=== PATIENT | female | born 1985 | race Caucasian/White ===

== ENCOUNTER → 2018-02-08 | Day surgery (SDC) | payer OTHER ==
[~2018-02-08] MED LIST: FENTANYL CITRATE/PF 100MCG/2 ML INJ ONE; FLEXERIL10 MG PO; LEVOTHYROXINE50 MCG PO; LIDODERM700 MG; METFORMIN HCL1000 MG PO; PHENERGAN SUPP25 MG; PROPOFOL IV EMULSION 10 MG/ML 50 ML VIAL ONE; VENLAFAXINE HCL75 MG PO; VICODIN 5-5001 EACH PO; WELLBUTRIN PO; WELLBUTRIN XL150 MG PO
--- NOTE | 2018-02-08 09:11 | Operative Report ---
DATE OF PROCEDURE: February 08, 2018 PROCEDURE: Esophagogastroduodenoscopy. PREOPERATIVE DIAGNOSIS: The patient has abdominal pain, bloating, peptic ulcer disease, gastroesophagitis, and upper gastrointestinal neoplasm. PROCEDURE: After informed written consent, premedication with monitored anesthesia care. The standard video Olympus gastroscope was introduced into the mouth, esophagus, stomach and into the 2nd portion of the duodenum. The 1st and 2nd portion of the duodenum appeared to be normal. Biopsies were done to rule out any possibility of malabsorption of celiac sprue. The antrum and body showed evidence of gastritis with some scattered erosions and biopsies were done. Fundus of the stomach appeared to be normal. Retroflexion was unremarkable. The GE junction showed evidence of mild reflux and biopsies were done to rule out any possibility of short segment Castañeda's. The rest of the esophagus was normal. IMPRESSION 1. Mild esophagitis. 2. Significant gastritis. RECOMMENDATIONS: Avoid aspirin, NSAIDs. Will put the patient on lansoprazole 30 mg once a day. Patient advised to follow up in the office in 3 weeks. If symptoms persist, further evaluation may be recommended. Further recommendations will be based on the patient's clinical course. Job#: [id number]
== END | disposition home or self-care (01) ==
LOC: OR 05:33
PROVIDERS: ATTEND Internal Medicine Gastroenterology
DX: D49.0 Neoplasm of unspecified behavior of digestive system (principal); K29.70 Gastritis, unspecified, without bleeding; K27.9 Peptic ulcer, site unspecified, unspecified as acute or chronic, without hemorrhage or perforation; K20.9 Esophagitis, unspecified; E66.01 Morbid (severe) obesity due to excess calories; E03.9 Hypothyroidism, unspecified; E28.2 Polycystic ovarian syndrome; F32.9 Major depressive disorder, single episode, unspecified; F17.210 Nicotine dependence, cigarettes, uncomplicated; Z79.84 Long term (current) use of oral hypoglycemic drugs; Z68.43 Body mass index [BMI] 50.0-59.9, adult; Z86.711 Personal history of pulmonary embolism
CPT/HCPCS: 43239